=== PATIENT | female | born 1990 | race Two or more races ===

== ENCOUNTER → 2025-07-19 | Emergency (ER) | payer OTHER ==
[~2025-07-19] VITALS: Ht 182.9 cm; Wt 77.1 kg
[~2025-07-19] MED LIST: DEXAMETHASONE SODIUM PHOSPHATE 4 MG/ML VIAL IM ONE; KETO10TA2 PO; KETOROLAC TROMETHAMINE 30 MG VIAL IM ONE; MACRODANTIN100 M1 PO; NORFLEX100MG PO; ORPHENADRINE CITRATE 30 MG/ML AMPUL IM ONE
[2025-07-19 08:43] VITALS: O2SAT 99
[2025-07-19 11:55] VITALS: BP 120/80
== END | disposition home or self-care (01) ==
LOC: ER 08:17
DX: M54.16 Radiculopathy, lumbar region (principal); M54.50 Low back pain, unspecified